=== PATIENT | male | born 1970 | race Hispanic/Latino ===

== ENCOUNTER 2018-02-01 15:41 | Emergency (ER) | payer BC ==
[2018-02-01] MEDS ORDERED: DECADRON IV ONE (16:35)
[2018-02-01] MEDS ORDERED: MORPHINE IV ONE (16:45)
[2018-02-01] MEDS ORDERED: DECADRON ONE (17:30)
[2018-02-01] MEDS ORDERED: MORPHINE ONE ×2 (17:30→17:31)
--- NOTE | 2018-02-01 17:50 | Emergency Department Report ---
ED Back Pain/Injury HPI - General Chief Complaint: Back Pain/Injury Stated Complaint: BACK PAIN Time Seen by Provider: 02/01/18 16:08 Source: patient, EMS Limitations: Physical Limitation - History of Present Illness Initial Comments: 47-year-old male presents to ED with complaints of low back pain. Reports onset today while at work. Patient reports lifting heavy equipment. Patient states he felt a "twinge" in his back. Pain is worse with any type of movement, standing, sitting, twisting. Patient denies radiation of pain into the lower extremities. Patient also denies numbness or tingling in lower extremities. Patient denies urinary difficulty or incontinence. Denies past history of back pain. States he took 3 ibuprofen prior to ED arrival. MD Complaint: back pain -: Gradual, days(s) (1) Similar Symptoms Previously: No Place: work Radiation: none Severity: severe Quality: aching Consistency: constant Improves With: immobilization Worsens With: movement, sitting upright, walking Context: while lifting, turning/twisting, bending Associated Symptoms: difficulty walking. denies: weakness, numbness, difficulty urinating, incontinence Treatments Prior to Arrival: NSAIDS - Related Data Previous Rx's Medication Instructions Recorded Last Taken Type Methocarbamol [Robaxin-750] 750 mg PO Q6HR PRN #20 tablet 02/01/18 Unknown Rx Naproxen [Naprosyn] 500 mg PO BID #20 tablet 02/01/18 Unknown Rx predniSONE [Prednisone] 50 mg PO DAILY #5 tablet 02/01/18 Unknown Rx traMADol [Ultram] 50 mg PO Q6HR PRN #7 tablet 02/01/18 Unknown Rx Allergies Allergy/AdvReac Type Severity Reaction Status Date / Time Penicillins Allergy Hives Verified 02/01/18 16:01 ED Review of Systems ROS: Stated complaint: BACK PAIN Other details as noted in HPI Comment: All other systems reviewed and negative Constitutional: denies: fever Genitourinary: other (denies incontinence) Musculoskeletal: back pain Neurological: denies: weakness, numbness ED Past Medical Hx - Past Medical History Previous Medical History?: No - Surgical History Past Surgical History?: No - Social History Smoking Status: Never Smoker Substance Use Type: Alcohol - Medications Home Medications: Home Medications Medication Instructions Recorded Confirmed Last Taken Type Methocarbamol [Robaxin-750] 750 mg PO Q6HR PRN #20 tablet 02/01/18 Unknown Rx Naproxen [Naprosyn] 500 mg PO BID #20 tablet 02/01/18 Unknown Rx predniSONE [Prednisone] 50 mg PO DAILY #5 tablet 02/01/18 Unknown Rx traMADol [Ultram] 50 mg PO Q6HR PRN #7 tablet 02/01/18 Unknown Rx ED Physical Exam - General Limitations: Physical Limitation General appearance: alert, other (appears uncomfortable) - Head Head exam: Present: atraumatic, normocephalic - Eye Eye exam: Present: normal appearance - ENT ENT exam: Present: mucous membranes moist - Neck Neck exam: Present: normal inspection, full ROM - Respiratory Respiratory exam: Present: normal lung sounds bilaterally. Absent: respiratory distress - Cardiovascular Cardiovascular Exam: Present: regular rate, normal rhythm - GI/Abdominal GI/Abdominal exam: Present: soft. Absent: tenderness - Extremities Exam Extremities exam: Present: normal inspection. Absent: tenderness - Back Exam Back exam: Present: paraspinal tenderness (R>L), vertebral tenderness. Absent: full ROM - Neurological Exam Neurological exam: Present: alert, oriented X3. Absent: motor sensory deficit - Psychiatric Psychiatric exam: Present: normal affect, normal mood - Skin Skin exam: Present: warm, dry, intact, normal color ED Course Vital Signs 02/01/18 02/01/18 02/01/18 15:58 17:35 17:37 Temperature 98.4 F Pulse Rate 70 68 Respiratory 18 18 18 Rate Blood Pressure 136/80 Blood Pressure 146/94 [Left] O2 Sat by Pulse 98 99 99 Oximetry 02/01/18 19:10 Temperature 98.2 F Pulse Rate 60 Respiratory 16 Rate Blood Pressure Blood Pressure 133/92 [Left] O2 Sat by Pulse 97 Oximetry - Reevaluation(s) Reevaluation #1: 02/01/18 18:13 Pt feeling much better. Now able to sit up and turn on stretcher, hanging legs off side of stretcher. ED Medical Decision Making - Radiology Data Radiology results: report reviewed, image reviewed - Medical Decision Making 47-year-old male with acute back pain sustained while at work. X-rays show no acute findings. Patient feeling much better following medication administration. Range of motion much improved. Patient to follow-up with occupational medicine at work. Also given information for orthopedist. Prescriptions given for pain relief. Return precautions given. - Differential Diagnosis muscle strain, fracture, herniated disc Critical care attestation.: If time is entered above; I have spent that time in minutes in the direct care of this critically ill patient, excluding procedure time. ED Disposition Clinical Impression: Acute myofascial strain of lumbar region Disposition: TO HOME OR SELFCARE Is pt being admited?: No Condition: Stable Instructions: Muscle Strain (ED), Acute Low Back Pain (ED) Prescriptions: Methocarbamol [Robaxin-750] 750 mg PO Q6HR PRN #20 tablet PRN Reason: Spasms Naproxen [Naprosyn] 500 mg PO BID #20 tablet predniSONE [Prednisone] 50 mg PO DAILY #5 tablet traMADol [Ultram] 50 mg PO Q6HR PRN #7 tablet PRN Reason: Pain Referrals: RANDELL JEFFRIES MD [Staff Physician] - 3-5 Days Forms: Work/School Release Form(ED) Time of Disposition: 21:24
[2018-02-01] MEDS ORDERED: ROBAXIN PO ONE ×2 (18:30)
[2018-02-01 19:17] VITALS: BP 133/92
--- NOTE | 2018-02-01 21:19 | XRay Report ---
FINAL REPORT PROCEDURE: XR SPINE LUMBOSACRAL 2-3V TECHNIQUE: Lumbosacral spine, AP and lateral views HISTORY: pain COMPARISON: No prior studies are available for comparison. FINDINGS: The vertebral body heights and alignment are maintained. There are mild degenerative disc changes at L3-4 and L4-5, with small anterior osteophyte formation. No scoliosis. IMPRESSION: Mild degenerative disc changes at L3-4 and L4-5
== END 2018-02-01 21:45 | disposition home or self-care (01) ==
LOC: ED 15:41
DX: S39.012A Strain of muscle, fascia and tendon of lower back, initial encounter (principal); Z88.0 Allergy status to penicillin; X58.XXXA Exposure to other specified factors, initial encounter; Y93.89 Activity, other specified; Y92.69 Other specified industrial and construction area as the place of occurrence of the external cause; Y99.8 Other external cause status
CPT/HCPCS: 72100; 96374; 96375; 99284; J1100; J2270